=== PATIENT | female | born 1975 | race Caucasian/White ===

== ENCOUNTER 2017-05-18 15:07 | Outpatient (CLI) | payer MEDICAID ==
[2017-05-18 16:03] LABS: ADD MAN DIFF? NO
[2017-05-18 16:10] LABS: BASOPHILS % 0.3 % (0.0-2.0); EOSINOPHILS # 0.1 10^3/ul (0.0-0.5); EOSINOPHILS % 1.1 % (0.0-7.0); HEMATOCRIT 33.6 % (37.0-47.0); HEMOGLOBIN 11.4 g/dl (12.0-16.0); LYMPHOCYTES # 1.1 10^3/ul (0.8-2.9); LYMPHOCYTES % 15.6 % (15.0-51.0); MEAN CORPUSCULAR HEMOGLOBIN 30.1 pg (29.0-33.0); MEAN CORPUSCULAR HGB CONC 33.9 g/dl (32.0-37.0); MEAN CORPUSCULAR VOLUME 88.7 fl (82.0-101.0); MEAN PLATELET VOLUME 10.6 fl (7.4-10.4); MONOCYTE # 0.4 10^3/ul (0.3-0.9); MONOCYTES % 5.5 % (0.0-11.0); NEUTROPHIL # 5.5 10^3/ul (1.6-7.5); NEUTROPHILS % 77.1 % (39.0-77.0); PLATELET COUNT 201 10^3/UL (140-415); RED BLOOD COUNT 3.79 10^6/ul (4.20-5.40); RED CELL DISTRIBUTION WIDTH 13.2 % (11.5-14.5)
[2017-05-18 16:10] LABS: WHITE BLOOD COUNT 7.1 10^3/ul (4.8-10.8)
[2017-05-18 16:29] LABS: INR 0.92; PARTIAL THROMBOPLASTIN TIME 26.4 Sec (25.0-35.0); PROTIME 12.4 Sec (11.9-14.9)
[2017-05-18 16:30] LABS: ALANINE AMINOTRANSFERASE 36 IU/L (13-69); ALBUMIN 3.9 g/dl (3.3-4.9); ALBUMIN/GLOBULIN RATIO 1.39; ALKALINE PHOSPHATASE 139 IU/L (42-121); ANION GAP 18 (8-16); ASPARTATE AMINO TRANSFERASE 28 IU/L (15-46); BILIRUBIN,INDIRECT 0.1 mg/dl (0-1.1); BILIRUBIN,TOTAL 0.1 mg/dl (0.2-1.3); BLOOD UREA NITROGEN 9 mg/dl (7-20); CALCIUM 8.7 mg/dl (8.4-10.2); CARBON DIOXIDE 22 mmol/L (21-31); CHLORIDE 104 mmol/L (97-110); CREATININE 0.58 mg/dl (0.44-1.00); GLUCOSE 90 mg/dl (70-220); POTASSIUM 3.8 mmol/L (3.5-5.1); SODIUM 140 mmol/L (135-144); TOTAL PROTEIN 6.7 g/dl (6.1-8.1); URIC ACID 4.2 mg/dl (3.1-7.9)
[2017-05-18 16:32] LABS: ADD UMIC YES; UR ASCORBIC ACID NEGATIVE (NEGATIVE); UR BILIRUBIN (Dip) NEGATIVE (NEGATIVE); UR BLOOD (Dip) 1+ mg/dL (NEGATIVE); UR CLARITY CLEAR (CLEAR); UR COLOR STRAW (YELLOW); UR GLUCOSE (Dip) NEGATIVE (NEGATIVE); UR KETONES (Dip) NEGATIVE (NEGATIVE); UR LEUKOCYTE ESTERASE (Dip) NEGATIVE Leu/ul (NEGATIVE); UR NITRITE (Dip) NEGATIVE (NEGATIVE); UR RBC 1 /HPF (0-5); UR SPECIFIC GRAVITY (Dip) 1.004 (1.003-1.030); UR TOTAL PROTEIN (Dip) NEGATIVE (NEGATIVE); UR UROBILINOGEN (Dip) NEGATIVE (NEGATIVE); UR WBC 1 /HPF (0-5)
[2017-05-18] MEDS: LACTATED RINGER'S 1,000 ML IV ×2 (19:00→20:30)
[2017-05-18 20:03] LABS: ALANINE AMINOTRANSFERASE 37 IU/L (13-69); ALBUMIN 3.7 g/dl (3.3-4.9); ALKALINE PHOSPHATASE 138 IU/L (42-121); ASPARTATE AMINO TRANSFERASE 29 IU/L (15-46); TOTAL PROTEIN 6.1 g/dl (6.1-8.1)
[2017-05-18] MEDS: TERBUTALINE 1 MG/ML INJ SC (20:20)
[2017-05-18] MEDS: NIFEdipine 10 MG CAP PO (21:55)
[2017-05-19] MEDS: ACETAMINOPHEN 325 MG TAB PO (02:00)
== END 2017-05-19 06:24 | disposition home or self-care (01) ==
LOC: OBT 15:07 → L-D 15:09
DX: O47.1 False labor at or after 37 completed weeks of gestation (principal); O26.893 Other specified pregnancy related conditions, third trimester; R10.11 Right upper quadrant pain; O24.419 Gestational diabetes mellitus in pregnancy, unspecified control; O09.523 Supervision of elderly multigravida, third trimester; Z3A.32 32 weeks gestation of pregnancy
CPT/HCPCS: 36415; 76705; 76818; 80053; 80076; 81001; 84560; 85025; 85384; 85610; 85730; 96360; 96361

== ENCOUNTER 2017-05-20 19:33 | Outpatient (CLI) | payer MEDICAID ==
[2017-05-20] MEDS ORDERED: LACTATED RINGER'S 500 ML IV (20:33)
[2017-05-20] MEDS: LACTATED RINGER'S 1,000 ML IV (22:06)
[2017-05-20] MEDS: TERBUTALINE 1 MG/ML INJ SC (22:15)
[2017-05-20 22:56] LABS: ADD UMIC YES; UR ASCORBIC ACID NEGATIVE (NEGATIVE); UR BACTERIA FEW /HPF (NONE SEEN); UR BILIRUBIN (Dip) NEGATIVE (NEGATIVE); UR BLOOD (Dip) 1+ mg/dL (NEGATIVE); UR CLARITY CLEAR (CLEAR); UR COLOR YELLOW (YELLOW); UR GLUCOSE (Dip) 1+ mg/dL (NEGATIVE); UR KETONES (Dip) TRACE mg/dL (NEGATIVE); UR LEUKOCYTE ESTERASE (Dip) NEGATIVE Leu/ul (NEGATIVE); UR NITRITE (Dip) NEGATIVE (NEGATIVE); UR RBC 2 /HPF (0-5); UR SPECIFIC GRAVITY (Dip) 1.009 (1.003-1.030); UR TOTAL PROTEIN (Dip) NEGATIVE (NEGATIVE); UR UROBILINOGEN (Dip) NEGATIVE (NEGATIVE); UR WBC 0 /HPF (0-5)
[2017-05-20] MEDS: HYDROCODONE/APAP (5/325) TAB PO (23:29)
[2017-05-21] MEDS: DEXTROSE 5%-LR 1,000 ML IV (00:57)
[2017-05-21] MEDS: TERBUTALINE 1 MG/ML INJ SC (00:59)
== END 2017-05-21 02:00 | disposition home or self-care (01) ==
LOC: OBT 19:33 → L-D 19:34
DX: O60.03 Preterm labor without delivery, third trimester (principal); O09.513 Supervision of elderly primigravida, third trimester; Z3A.32 32 weeks gestation of pregnancy
CPT/HCPCS: 36415; 76817; 76818; 81001; 82731; 82962; 87086; 96360; 96361; 96372

== ENCOUNTER 2017-06-22 18:27 | Inpatient (IN) | payer MEDICAID ==
[2017-06-22] MEDS ORDERED: LACTATED RINGER'S 1,000 ML IV (18:40)
[2017-06-22] MEDS: LACTATED RINGER'S 1,000 ML IV (18:53)
[2017-06-22] MEDS ORDERED: BUTORPHANOL 2 MG INJ IV (19:00)
[2017-06-22] MEDS ORDERED: CARBOPROST 250 MCG INJ IM (19:00)
[2017-06-22] MEDS ORDERED: LIDOCAINE 1% (MPF) 30 ML INJ INJ (19:00)
[2017-06-22] MEDS ORDERED: OXYTOCIN 30 UNITS/LR 500 ML IV ×2 (19:00)
[2017-06-22] MEDS ORDERED: MISOPROSTOL 200 MCG TAB PR (19:00)
[2017-06-22] MEDS ORDERED: METHYLERGONOVINE 0.2 MG INJ IM (19:00)
[2017-06-22] MEDS: DEXTROSE 5%-LR 1,000 ML IV (19:30)
[2017-06-22 19:53] LABS: ADD MAN DIFF? NO
[2017-06-22 19:56] LABS: BASOPHILS % 0.2 % (0.0-2.0); EOSINOPHILS # 0.1 10^3/ul (0.0-0.5); EOSINOPHILS % 1.1 % (0.0-7.0); HEMATOCRIT 35.2 % (37.0-47.0); HEMOGLOBIN 12.2 g/dl (12.0-16.0); LYMPHOCYTES # 1.5 10^3/ul (0.8-2.9); LYMPHOCYTES % 22.6 % (15.0-51.0); MEAN CORPUSCULAR HEMOGLOBIN 29.8 pg (29.0-33.0); MEAN CORPUSCULAR HGB CONC 34.7 g/dl (32.0-37.0); MEAN CORPUSCULAR VOLUME 86.1 fl (82.0-101.0); MEAN PLATELET VOLUME 11.2 fl (7.4-10.4); MONOCYTE # 0.2 10^3/ul (0.3-0.9); MONOCYTES % 2.7 % (0.0-11.0); NEUTROPHIL # 4.8 10^3/ul (1.6-7.5); NEUTROPHILS % 73.1 % (39.0-77.0); PLATELET COUNT 204 10^3/UL (140-415); RED BLOOD COUNT 4.09 10^6/ul (4.20-5.40); RED CELL DISTRIBUTION WIDTH 13.2 % (11.5-14.5)
[2017-06-22 19:56] LABS: WHITE BLOOD COUNT 6.6 10^3/ul (4.8-10.8)
[2017-06-22 20:12] LABS: INR 0.84; PROTIME 11.6 Sec (11.9-14.9); PT RATIO 0.9
[2017-06-22 20:13] LABS: PARTIAL THROMBOPLASTIN TIME 26.4 Sec (25.0-35.0)
[2017-06-22 20:16] LABS: ALANINE AMINOTRANSFERASE 69 IU/L (13-69); ALBUMIN 3.6 g/dl (3.3-4.9); ALBUMIN/GLOBULIN RATIO 1.12; ALKALINE PHOSPHATASE 247 IU/L (42-121); ANION GAP 19 (8-16); ASPARTATE AMINO TRANSFERASE 41 IU/L (15-46); BILIRUBIN,INDIRECT 0.1 mg/dl (0-1.1); BILIRUBIN,TOTAL 0.1 mg/dl (0.2-1.3); BLOOD UREA NITROGEN 12 mg/dl (7-20); CALCIUM 9.1 mg/dl (8.4-10.2); CARBON DIOXIDE 20 mmol/L (21-31); CHLORIDE 107 mmol/L (97-110); CREATININE 0.58 mg/dl (0.44-1.00); GLUCOSE 135 mg/dl (70-220); POTASSIUM 3.5 mmol/L (3.5-5.1); SODIUM 142 mmol/L (135-144); TOTAL PROTEIN 6.8 g/dl (6.1-8.1); URIC ACID 4.7 mg/dl (3.1-7.9)
[2017-06-22] MEDS ORDERED: MINERAL OIL LIGHT 10 ML VIAL TOP (20:30)
[2017-06-22 20:47] LABS: RAPID PLASMA REAGIN NONREACTIVE (NR)
[2017-06-22 21:15] LABS: ADD UMIC YES; UR ASCORBIC ACID NEGATIVE (NEGATIVE); UR BACTERIA FEW /HPF (NONE SEEN); UR BILIRUBIN (Dip) NEGATIVE (NEGATIVE); UR BLOOD (Dip) 1+ mg/dL (NEGATIVE); UR CLARITY CLEAR (CLEAR); UR COLOR YELLOW (YELLOW); UR GLUCOSE (Dip) NEGATIVE (NEGATIVE); UR KETONES (Dip) TRACE mg/dL (NEGATIVE); UR LEUKOCYTE ESTERASE (Dip) NEGATIVE Leu/ul (NEGATIVE); UR NITRITE (Dip) NEGATIVE (NEGATIVE); UR RBC 3 /HPF (0-5); UR SPECIFIC GRAVITY (Dip) 1.016 (1.003-1.030); UR TOTAL PROTEIN (Dip) NEGATIVE (NEGATIVE); UR UROBILINOGEN (Dip) 1+ mg/dL (NEGATIVE); UR WBC 1 /HPF (0-5)
[2017-06-22 22:25] LABS: HEPATITIS B SURFACE ANTIGEN NEGATIVE (NEGATIVE)
[2017-06-22 22:51] LABS: HIV 1&2 ANTIBODY NEGATIVE (NEGATIVE)
[2017-06-23] MEDS: LACTATED RINGER'S 1,000 ML IV ×3 (02:03→20:32)
[2017-06-23] MEDS: DEXTROSE 5%-LR 1,000 ML IV ×2 (02:40→10:40)
[2017-06-23] MEDS: OXYTOCIN 30 UNITS/LR 500 ML IV (09:08)
[2017-06-23] MEDS: GUAIFENESIN/DM 5ML CUP PO (21:37)
[2017-06-23 23:40] LABS: RUPTURE FETAL MEMBRANES POSITIVE (NEGATIVE)
[2017-06-24] MEDS: DEXTROSE 5%-LR 1,000 ML IV ×3 (03:32→11:17)
[2017-06-24] MEDS: LACTATED RINGER'S 1,000 ML IV ×2 (09:17→11:17)
[2017-06-24] MEDS: IBUPROFEN 600 MG TAB PO ×2 (11:34→17:38)
[2017-06-24] MEDS: OXYTOCIN 30 UNITS/LR 500 ML IV ×2 (11:41→14:10)
[2017-06-24] MEDS: HYDROCODONE/APAP (5/325) TAB PO (12:08)
[2017-06-24] MEDS ORDERED: OXYTOCIN 30 UNITS/LR 500 ML IV (14:30)
[2017-06-24] MEDS ORDERED: CARBOPROST 250 MCG INJ IM (14:30)
[2017-06-24] MEDS ORDERED: HYDROCODONE/APAP (5/325) TAB PO ×2 (14:30)
[2017-06-24] MEDS ORDERED: OXYCODONE/ASPIRIN (4.88/325) TAB PO ×2 (14:30)
[2017-06-24] MEDS ORDERED: DIBUCAINE 1% 30 GM OINT PR (14:30)
[2017-06-24] MEDS ORDERED: ACETAMINOPHEN 325 MG TAB PO (14:30)
[2017-06-24] MEDS ORDERED: MISOPROSTOL 200 MCG TAB PR (14:30)
[2017-06-24] MEDS ORDERED: METHYLERGONOVINE 0.2 MG INJ IM (14:30)
[2017-06-24] MEDS ORDERED: ONDANSETRON 4 MG INJ IV (14:30)
[2017-06-24] MEDS: LANOLIN 7 GM TUBE TOP (16:12)
[2017-06-24] MEDS: GUAIFENESIN/DM 5ML CUP PO (16:12)
[2017-06-24] MEDS: METHYLDOPA 250 MG TAB PO (21:14)
[2017-06-24] MEDS: SENNA/DOCUSATE NA (8.6MG/50MG) TAB PO (21:14)
[2017-06-25] MEDS: IBUPROFEN 600 MG TAB PO ×4 (00:09→17:20)
[2017-06-25] MEDS: GUAIFENESIN/DM 5ML CUP PO ×2 (00:09→07:53)
[2017-06-25 07:19] LABS: ADD MAN DIFF? NO
[2017-06-25 07:32] LABS: WHITE BLOOD COUNT 7.1 10^3/ul (4.8-10.8)
[2017-06-25 07:32] LABS: BASOPHILS % 0.3 % (0.0-2.0); EOSINOPHILS # 0.1 10^3/ul (0.0-0.5); EOSINOPHILS % 1.4 % (0.0-7.0); HEMATOCRIT 29.4 % (37.0-47.0); HEMOGLOBIN 9.9 g/dl (12.0-16.0); LYMPHOCYTES # 1.5 10^3/ul (0.8-2.9); LYMPHOCYTES % 21.7 % (15.0-51.0); MEAN CORPUSCULAR HEMOGLOBIN 30.2 pg (29.0-33.0); MEAN CORPUSCULAR HGB CONC 33.7 g/dl (32.0-37.0); MEAN CORPUSCULAR VOLUME 89.6 fl (82.0-101.0); MEAN PLATELET VOLUME 11.6 fl (7.4-10.4); MONOCYTE # 0.3 10^3/ul (0.3-0.9); MONOCYTES % 4.5 % (0.0-11.0); NEUTROPHIL # 5.1 10^3/ul (1.6-7.5); NEUTROPHILS % 71.8 % (39.0-77.0); PLATELET COUNT 180 10^3/UL (140-415); RED BLOOD COUNT 3.28 10^6/ul (4.20-5.40); RED CELL DISTRIBUTION WIDTH 13.4 % (11.5-14.5)
[2017-06-25] MEDS: SENNA/DOCUSATE NA (8.6MG/50MG) TAB PO ×2 (07:53→21:10)
[2017-06-25] MEDS: BENZOCAINE 20% 56 ML SPRAY TOP (07:54)
[2017-06-25] MEDS: WITCH HAZEL/GLYCERIN PAD PR (07:54)
[2017-06-25] MEDS: METHYLDOPA 250 MG TAB PO ×2 (08:36→21:11)
[2017-06-25] MEDS: PRENATAL VITAMIN PO (08:38)
[2017-06-26] MEDS: IBUPROFEN 600 MG TAB PO ×2 (00:53→05:37)
[2017-06-26] MEDS: GUAIFENESIN/DM 5ML CUP PO (02:22)
[2017-06-26] MEDS: SENNA/DOCUSATE NA (8.6MG/50MG) TAB PO (09:00)
[2017-06-26] MEDS: METHYLDOPA 250 MG TAB PO (09:12)
[2017-06-26] MEDS: PRENATAL VITAMIN PO (09:12)
[2017-06-26] MEDS: MEASLES,MUMPS,RUBELLA VACCINE INJ SC* (09:13)
[2017-06-26 12:16] LABS: RUBELLA ANTIBODY - IGG 1.33 index; RUBELLA ANTIBODY - IGM <20.00 AU/mL
== END 2017-06-26 12:57 | disposition home or self-care (01) | DRG 775 ==
LOC: OBT 18:27 → PP1 06-24 14:02 → L-D 18:29 → OBT 18:38 → L-D 18:38
PROC: 4A1HXCZ Monitoring of Products of Conception, Cardiac Rate, External Approach (ICD-10-PCS; 2017-06-22)
PROC: 10E0XZZ Delivery of Products of Conception, External Approach (ICD-10-PCS; principal; 2017-06-24)
DX: O24.420 Gestational diabetes mellitus in childbirth, diet controlled (principal); O13.4 Gestational [pregnancy-induced] hypertension without significant proteinuria, complicating childbirth; Z37.0 Single live birth; Z3A.37 37 weeks gestation of pregnancy
CPT/HCPCS: 71046; 76816; 80053; 81001; 82962; 84112; 84560; 85025; 85610; 85730; 86592; 86703; 86762; 86850; 86900; 86901; 87340